=== PATIENT | male | born 1995 | race Caucasian/White ===

== ENCOUNTER 2023-12-03 14:43 | Emergency (ER) | payer OTHER, SELFPAY ==
[2023-12-03 16:01] LABS: #Basophils 0.06 10x3/uL (0.0-0.2); #Eosinphils 0.08 10x3/uL (0.0-0.5); #Neutrophils 5.43 10x3/uL (1.5-8.4); %Basophils 0.6 % (0.0-2.0); %Eosinophils 0.8 % (0.0-6.0); %Lymphocytes 31.7 % (18.0-47.0); %Monocytes 9.4 % (0.0-10.0); %Neutrophils 57.1 % (40.0-75.0); Hematocrit 47.5 % (38.8-50.0); Hemoglobin 17.3 g/dL (13.5-17.5); Mean Corpuscular HGB CONC 36.4 g/dL (32.0-36.0); Mean Corpuscular Hemoglobin 32.5 pg (27.0-33.0); Mean Corpuscular Volume 89.1 fl (81.2-95.1); Mean Platelet Volume 11.7 fl (7.4-10.4); Platelet Count 248 10x3/uL (150-450); RBC Distribution Width 11.9 % (11.5-14.5); Red Blood Cell (RBC) Count 5.33 10x6/uL (4.32-5.72); White Blood Cell (WBC) Count 9.5 10x3/uL (3.5-10.5)
[2023-12-03 16:12] LABS: ALT (SGPT) 41 U/L (8-55); AST (SGOT) 21 U/L (5-34); Albumin 4.5 g/dL (3.5-5.0); Alkaline Phosphatase 95 U/L (40-110); Anion Gap 21 mmol/L (10-20); BUN (Urea Nitrogen) 13 mg/dL (8.9-20.6); Bilirubin, Total 1.1 mg/dL (0.2-1.2); Calc. Creatinine Clearance 0 mL/min (70-130); Calcium 9.9 mg/dL (7.8-10.44); Carbon Dioxide 13 mmol/L (22-29); Chloride 108 mmol/L (98-107); Estimated GFR 114; Globulin 2.9 g/dL (2.4-3.5); Glucose 96 mg/dL (70-105); Potassium 3.4 mmol/L (3.5-5.1); Protein, Total 7.4 g/dL (6.0-8.3); Sodium 139 mmol/L (136-145)
[2023-12-03 16:13] LABS: Troponin I 0.017 ng/mL (< 0.028)
[2023-12-03] MEDS ORDERED: diphenhydrAMINE 50 MG/ML VIAL ONE (16:13)
[2023-12-03] MEDS ORDERED: Metoclopramide HCl 10 MG (2 mL) VIAL ONE (16:14)
== END 2023-12-03 19:39 | disposition home or self-care (01) ==
LOC: CSHERS 14:43 → EEVIPCON 14:43 → CSHERS 19:39
DX: R55 Syncope and collapse (principal); R51.9 Headache, unspecified; I10 Essential (primary) hypertension; F17.210 Nicotine dependence, cigarettes, uncomplicated; W19.XXXA Unspecified fall, initial encounter
CPT/HCPCS: 70450; 71045; 80053; 84484; 85025; 93005; 96374; 96375; J1200; J2765